=== PATIENT | female | born 1995 | race Hispanic/Latino ===

== ENCOUNTER 2018-08-31 06:25 | Day surgery (SDC) | payer OTHER ==
[2018-08-29 15:47] LABS: Absolute Lymphocytes (CBC) 1.8 K/uL (0.7-4.9); Absolute Monocytes 0.4 K/uL (0.1-1.3); Absolute Neutrophil 3.4 K/uL (1.8-8.0); Basophils % 0.5 % (0-1.3); Eosinophils % 2.8 % (0-4.4); Hematocrit 39.6 % (36.0-45.0); Lymphocytes % 31.2 % (15.3-44.8); MCH 29.7 pg (27.0-35.0); MCV 84.7 fL (80-100); MPV 8.1 fL (7.6-11.3); Monocytes % 7.6 % (3.3-12.3); RBC Red Blood Cell Count 4.67 M/uL (3.86-4.86)
[2018-08-29 16:05] LABS: Urine Appearance CLEAR; Urine Bilirubin NEGATIVE (NEG); Urine Blood NEGATIVE (NEG); Urine Color YELLOW; Urine Glucose NEGATIVE (NEG); Urine Protein NEGATIVE (NEG); Urine Urobilinogen 0.2 mg/dL (0.2-1.0)
[2018-08-29 16:25] LABS: Urine Microscopic Reflex NO UMIC
[2018-08-31] MEDS ORDERED: Ringers Lactate 1,000 ML IV ONE (06:56)
[2018-08-31] MEDS ORDERED: SCOPOLAMINE HYDROBROMIDE PATCH TD ONE (06:56)
[2018-08-31] MEDS ORDERED: PROPOFOL 200 MG/20 ML VIAL IV ONE (07:22)
[2018-08-31] MEDS ORDERED: ROCURONIUM 50 MG/5 ML VIAL IV ONE (07:22)
[2018-08-31] MEDS ORDERED: GLYCOPYRROLATE 0.2 MG/ML SYR ONE (07:23)
[2018-08-31] MEDS ORDERED: DEXAMETHASONE 10 MG/ML VIAL ONE (07:23)
[2018-08-31] MEDS ORDERED: LIDOCAINE 2% MPF 5 ML VIAL ONE (07:23)
[2018-08-31] MEDS ORDERED: FENTANYL CITR 250 MCG/5 ML ONE (07:24)
[2018-08-31] MEDS ORDERED: NEOSTIGMINE 1 MG/ML -5 ML SYRINGE ONE (07:25)
[2018-08-31] MEDS ORDERED: MIDAZOLAM HCL 2 MG/2 ML INJ ONE (07:26)
[2018-08-31] MEDS ORDERED: ONDANSETRON 4 MG/2 ML VIAL ONE (07:28)
[2018-08-31] MEDS ORDERED: NA CHLORIDE 0.9% 1,000 ML ONE (08:01)
[2018-08-31] MEDS: Ringers Lactate 1,000 ML IV ONE ×2 (09:02→09:25)
[2018-08-31] MEDS ORDERED: KETOROLAC 30 MG/ML INJ ONE (09:30)
[2018-08-31] MEDS: MEPERIDINE HCL 50 MG/ML AMP ONE ×3 (10:09→10:25)
[2018-08-31] MEDS ORDERED: HYDROCODONE/APAP 5/325 MG TAB ONE (11:13)
== END 2018-08-31 11:45 | disposition home or self-care (01) ==
LOC: OR 06:25
PROVIDERS: ATTEND Obstetrics & Gynecology
PROC: 0UBF4ZZ Excision of Cul-de-sac, Percutaneous Endoscopic Approach (ICD-10-PCS; 2018-08-31)
PROC: 0UB44ZZ Excision of Uterine Supporting Structure, Percutaneous Endoscopic Approach (ICD-10-PCS; 2018-08-31)
PROC: 0UJD8ZZ Inspection of Uterus and Cervix, Via Natural or Artificial Opening Endoscopic (ICD-10-PCS; principal; 2018-08-31 07:30)
DX: N92.0 Excessive and frequent menstruation with regular cycle (principal); N94.4 Primary dysmenorrhea; R10.2 Pelvic and perineal pain; E66.9 Obesity, unspecified; Z68.34 Body mass index [BMI] 34.0-34.9, adult; F41.9 Anxiety disorder, unspecified; F20.9 Schizophrenia, unspecified; F43.10 Post-traumatic stress disorder, unspecified; F32.9 Major depressive disorder, single episode, unspecified; Z80.3 Family history of malignant neoplasm of breast
CPT/HCPCS: 36415; 81003; 81025; 85025; 86850; 86900; 86901; 88305; J1100; J2175; J2250; J2405; J2710; J7030